=== PATIENT | female | born 1950 ===

== ENCOUNTER 2022-05-08 05:50 | Day surgery (SDC) | payer OTHER ==
[~2022-05-08] VITALS: Ht 152.4 cm; Wt 51.7 kg
[~2022-05-08 05:50] MED LIST: SYNTHROID50 MCG PO
[2022-05-08] MEDS ORDERED: RECTICARE30 GM TOP (08:31)
[2022-05-08] MEDS ORDERED: PERCOCET 5-3251 EACH PO (08:31)
== END 2022-05-08 14:50 | disposition home or self-care (01) ==
LOC: CIR.AMB 05:50
PROVIDERS: ATTEND Surgery
DX: D12.8 Benign neoplasm of rectum (principal); N72 Inflammatory disease of cervix uteri; Z20.822 Contact with and (suspected) exposure to COVID-19; Z86.16 Personal history of COVID-19; E03.9 Hypothyroidism, unspecified